=== PATIENT | female | born 1930 | race Caucasian/White ===

== ENCOUNTER → 2016-10-19 | Outpatient (REF) ==
[~2016-10-19] MED LIST: ALEVE 220MG220 MG PO; AMOXICILLIN 8751 TAB PO; ANTIVERT 25MG25 MG PO; BACTRIM DS 8001 TAB PO; CIPRO 500MG TA500 MG PO; FLEXERIL10 MG PO; IBUPROFEN600 MG PO; LORTAB 5/500 501 TAB PO; METRONIDAZOLE500 MG PO; NO HOME MEDICATIONS; NORCO 325 MG-7.1 TAB PO; PERCOCET 5/321 UDTAB PO; PREDNISONE20 MG PO; VALIUM 5MG T5 MG/TAB PO; ZETIA10 MG PO; ZOFRAN 4MG T4 MG/TAB PO
== END ==
LOC: ZCOL.LAB 18:37
DX: Z01.89 Encounter for other specified special examinations (principal)

== ENCOUNTER → 2017-05-20 | Outpatient (REF) ==
[2017-05-20 18:44] LABS: THYROID STIMULATING HORMONE 2.04 uIU/mL (0.465-4.680)
== END ==
LOC: ZLAB.WCH 17:59
PROVIDERS: Internal Medicine
DX: Z01.89 Encounter for other specified special examinations (principal)

== ENCOUNTER → 2017-05-24 | Outpatient (CLI) | payer MEDICARE, BC | LOC: COL.VAS 09:24 | DX: I73.9 Peripheral vascular disease, unspecified (principal) ==

== ENCOUNTER → 2018-02-11 | Outpatient (REF) ==
[2018-02-11 19:24] LABS: THYROID STIMULATING HORMONE 2.77 uIU/mL (0.465-4.680)
== END ==
LOC: ZLAB.WCH 18:25
PROVIDERS: Internal Medicine
DX: Z01.89 Encounter for other specified special examinations (principal)

== ENCOUNTER 2020-10-03 08:30 | Outpatient (RCR) | payer MEDICARE, BC | END 2020-10-11 | disposition home or self-care (01) | LOC: MKS.ESL.PT | DX: M54.16 Radiculopathy, lumbar region (principal) ==

== ENCOUNTER 2020-11-21 10:00 | Outpatient (RCR) | payer MEDICARE, BC | END 2020-11-21 13:20 | disposition home or self-care (01) | LOC: MKS.ESL.PT 10:00 | DX: M54.16 Radiculopathy, lumbar region (principal) ==

== ENCOUNTER → 2021-12-25 | Outpatient (RCR) | payer MEDICARE, BC | END | disposition home or self-care (01) | LOC: MKS.ESL.PT | DX: M62.81 Muscle weakness (generalized) (principal) ==